=== PATIENT | female | born 1985 | race African-American/Black ===

== ENCOUNTER 2019-09-20 22:05 | Inpatient (IN) | payer MEDICAID ==
[~2019-09-20] VITALS: Ht 157.5 cm; Wt 54.4 kg
[~2019-09-20 22:05] MED LIST: FERR27TA2 PO; PREN-96 PO
[2019-09-21 02:34] LABS: Basophils # (auto) 0 10 ^3/uL (0-0.2); Basophils % (auto) 0.1 % (0.0-2.0); Eosinophils # (auto) 0 10 ^3/uL (0-0.8); Eosinophils % (auto) 0.1 % (0.0-7.0); Hematocrit 37.5 % (36.0-46.0); Hemoglobin 12.3 g/dL (12.2-16.2); Lymphocytes % (auto) 15.3 % (10.0-50.0); Mean Corpuscular Hemoglobin 28.5 pg (28.0-32.0); Mean Corpuscular Hgb Conc. 32.9 g/dL (32.0-36.0); Mean Corpuscular Volume 86.5 fL (80.0-100.0); Monocytes # (auto) 0.3 10 ^3/uL (0-1.3); Monocytes % (auto) 4.9 % (0.0-12.0); Neutrophils % (auto) 79.6 % (37.0-80.0); Platelet Count (auto) 253 10^3/uL (140-450); Red Blood Cells 4.34 10^6/uL (4.0-5.20); Red Cell Distribution Width 13.5 % (11.8-14.3); White Blood Cell 6.2 10^3/uL (4.4-10.8)
[2019-09-21 02:54] LABS: Albumin 3.6 g/dL (3.4-5.0); BUN/Creatinine Ratio 7.8; Calcium 8.5 mg/dL (8.5-10.1); Potassium 3.5 mmol/L (3.5-5.1)
[2019-09-21 02:56] LABS: Bilirubin, Total 0.2 mg/dL (0.2-1.0)
[2019-09-21] MEDS: SODIUM CHLORIDE 0.9% 1,000 ML IV SCH ×2 (05:01→21:57)
[2019-09-21] MEDS ORDERED: DOCUSATE SOD 100 MG CAP PO PRN (05:15)
[2019-09-21] MEDS ORDERED: ACETAMINOPHEN 500 MG TAB PO PRN (05:15)
[2019-09-21] MEDS ORDERED: HYDROcodone-ACET 5/325MG TAB PO PRN (05:15)
[2019-09-21] MEDS ORDERED: ALUM & MAG HYDROX-SIMETH LIQ(MAALOX) 30 ML PO PRN (05:15)
[2019-09-21] MEDS ORDERED: ACETAMINOPHEN 325 MG TAB PO PRN (05:15)
[2019-09-21] MEDS ORDERED: ONDANSETRON HCL 4 MG/2 ML VIAL IV PRN (05:15)
[2019-09-21] MEDS ORDERED: MORPHINE SULF INJ 2 MG/ML SYRINGE 1ML IV PRN (05:15)
[2019-09-21] MEDS ORDERED: LORazepam 0.5 MG TAB PO PRN (05:15)
[2019-09-21] MEDS ORDERED: ALBUTEROL SULF HFA 90MCG INH 200DOSE IN SCH (06:00)
[2019-09-21] MEDS: CHOLECALCIFEROL (VITD3) 1,000UNIT=25mCg TAB PO SCH (09:52)
[2019-09-21] MEDS: ASCORBIC ACID 1,000 MG TAB PO SCH (09:52)
[2019-09-21] MEDS: ZINC SULFATE 220mg CAP or TAB PO SCH (09:52)
[2019-09-21] MEDS: DOXYCYCLINE 100 MG TAB/CAP PO SCH ×2 (09:52→21:48)
[2019-09-21] MEDS: ENOXAPARIN SOD 40 MG/0.4 ML SYRINGE SC SCH (09:52)
[2019-09-22 05:37] LABS: Basophils # (auto) 0 10 ^3/uL (0-0.2); Basophils % (auto) 0.4 % (0.0-2.0); Eosinophils # (auto) 0 10 ^3/uL (0-0.8); Eosinophils % (auto) 1.3 % (0.0-7.0); Hemoglobin 11.5 g/dL (12.2-16.2); Lymphocytes # (auto) 1.4 10 ^3/uL (0.4-5.4); Lymphocytes % (auto) 51.4 % (10.0-50.0); Mean Corpuscular Hemoglobin 28.6 pg (28.0-32.0); Mean Corpuscular Volume 86.7 fL (80.0-100.0); Monocytes # (auto) 0.3 10 ^3/uL (0-1.3); Monocytes % (auto) 9.6 % (0.0-12.0); Neutrophils % (auto) 37.3 % (37.0-80.0); Nucleated Red Blood Cells % 0.2 %; Platelet Count (auto) 259 10^3/uL (140-450); Red Blood Cells 4.03 10^6/uL (4.0-5.20); Red Cell Distribution Width 13.4 % (11.8-14.3); White Blood Cell 2.8 10^3/uL (4.4-10.8)
[2019-09-22 06:04] LABS: Albumin 3.2 g/dL (3.4-5.0); Calcium 8.3 mg/dL (8.5-10.1); Potassium 3.5 mmol/L (3.5-5.1)
[2019-09-22 06:08] LABS: BUN/Creatinine Ratio 11.8; Bilirubin, Total 0.2 mg/dL (0.2-1.0); Total Protein 7.3 g/dL (6.4-8.2)
[2019-09-22] MEDS: SODIUM CHLORIDE 0.9% 1,000 ML IV SCH (08:29)
[2019-09-22] MEDS: ASCORBIC ACID 1,000 MG TAB PO SCH (09:17)
[2019-09-22] MEDS: DOXYCYCLINE 100 MG TAB/CAP PO SCH (09:17)
[2019-09-22] MEDS: CHOLECALCIFEROL (VITD3) 1,000UNIT=25mCg TAB PO SCH (09:17)
[2019-09-22] MEDS: ZINC SULFATE 220mg CAP or TAB PO SCH (09:18)
[2019-09-22] MEDS: ENOXAPARIN SOD 40 MG/0.4 ML SYRINGE SC SCH (09:18)
[2019-09-22] MEDS ORDERED: ALBUAER3 IN (14:52)
[2019-09-22] MEDS ORDERED: IPRIH IN (14:52)
[2019-09-22] MEDS ORDERED: DOX100T PO (14:52)
[2019-09-22 17:56] VITALS: BP 110/82
== END 2019-09-22 19:10 | disposition home or self-care (01) | DRG 137 ==
LOC: ER 22:05 → OVERFLOW 22:06
PROVIDERS: ADMIT Hospitalist; ATTEND Internal Medicine
DX: U07.1 COVID-19 (principal); J12.89 Other viral pneumonia; J96.90 Respiratory failure, unspecified, unspecified whether with hypoxia or hypercapnia; J98.11 Atelectasis
CPT/HCPCS: 36415; 71045; 71275; 80053; 82728; 83036; 83735; 84702; 85025; 85379; 87070; 87804; 87880; 93970; G0378